=== PATIENT | male | born 1950 | race Caucasian/White ===

== ENCOUNTER 2023-06-02 17:16 | Emergency (ER) | payer OTHER ==
[~2023-06-02] VITALS: Ht 175.3 cm; Wt 82.6 kg
[2023-06-02 17:23] VITALS: BP_SYST 140; PULSE 69; RESP 18; TEMP 98.3; O2SAT 98
== END 2023-06-02 18:20 | disposition left against medical advice (07) ==
LOC: SED 17:16
DX: F41.9 Anxiety disorder, unspecified (principal); Z53.21 Procedure and treatment not carried out due to patient leaving prior to being seen by health care provider
CPT/HCPCS: 99281